=== PATIENT | male | born 1950 | race Caucasian/White ===

== ENCOUNTER → 2024-02-19 | Day surgery (SDC) | payer MEDICARE ==
[2024-02-15 13:48] LABS: BASOPHILS % 0.6 % (0.0-1.0); EOSINOPHILS # (AUTO) 0.3 (0.0-0.4); EOSINOPHILS % 3.9 % (0.0-6.0); HEMATOCRIT 40.3 % (38.2-49.6); HEMOGLOBIN 12.4 g/dL (14.0-18.0); LYMPHOCYTES % 27.3 % (18.0-39.1); MEAN CORPUSCULAR HEMOGLOBIN 30.9 pg (28-32); MEAN CORPUSCULAR HGB CONC 30.8 g/dL (31-35); MEAN CORPUSCULAR VOLUME 100.5 fL (81-99); MONOCYTES # (AUTO) 0.5 (0.2-0.8); MONOCYTES % 6.8 % (4.4-11.3); NEUTROPHILS # (AUTO) 4.4 (2.1-6.9); PLATELET COUNT 205 x10e3/uL (140-360); RED BLOOD COUNT 4.01 x10e6/uL (4.3-5.7); RED CELL DISTRIBUTION WIDTH 15.4 % (11.7-14.4); WHITE BLOOD COUNT 7.25 x10e3/uL (4.8-10.8)
[~2024-02-19] MED LIST: AMITRIPTYLINE H25 MG PO; ATORVASTATIN CA20 MG PO; BUMETANIDE1 MG PO; ELIQUIS5 MG PO; FENTANYL CITRATE/PF 100MCG/2 ML INJ ONE; FOLIC ACID0.4 MG PO; LIDOCAINE HCL 2% LOCAL INJ 5 ML SDV VIAL INJ ONE; METHOTREXATE2.5 MG PO; PROPOFOL IV EMULSION 10 MG/ML 20 ML VIAL ONE; [UNRECOGNIZED DRUG - OTHER] PO
[2024-02-19] MEDS: LACTATED RINGER'S 1,000 ML ONE (06:33)
[2024-02-19 06:45] VITALS: BP 119/65; PULSE 63; RESP 17; O2SAT 99
== END | disposition home or self-care (01) ==
LOC: OR 05:22
PROVIDERS: ATTEND Orthopaedic Surgery
DX: M16.11 Unilateral primary osteoarthritis, right hip (principal); I45.10 Unspecified right bundle-branch block; I48.91 Unspecified atrial fibrillation; E66.9 Obesity, unspecified; F17.200 Nicotine dependence, unspecified, uncomplicated; Z01.810 Encounter for preprocedural cardiovascular examination; Z01.812 Encounter for preprocedural laboratory examination; Z01.818 Encounter for other preprocedural examination; Z79.02 Long term (current) use of antithrombotics/antiplatelets; Z79.899 Other long term (current) drug therapy
CPT/HCPCS: 20610; 36415; 71046; 77002; 85025; 93005; J2003; J2704; J3010; J7121